=== PATIENT | male | born 1990 | race Caucasian/White ===

== ENCOUNTER 2016-10-02 23:36 | Emergency (ER) | payer OTHER ==
[~2016-10-02] VITALS: Ht 172.7 cm; Wt 76.6 kg
[2016-10-02 23:40] VITALS: TEMP 36.9; Ht 172.7 cm; Wt 76.6 kg
[2016-10-02] MEDS ORDERED: IBUPROFEN 600 MG TAB PO STA (23:51)
--- NOTE | 2016-10-02 23:58 | EMERGENCY ROOM VISIT NOTE ---
History Report prepared by Марина: Katherine Wallace Under the Supervision of: Dr. Jorge Cr D.O. First contact with patient: 23:45 Chief Complaint: KNEEPAIN Stated Complaint: SOMETHING WRONG WITH LEFT KNEE History of Present Illness The patient is a 25 year old male who presents to the Emergency Room with complaints of worsening left knee pain starting 3 days ago. The pain started at night 3 days ago after he returned home from work. He works in construction and moving furniture. He does not remember injuring his knee, twisting or turning his knee. He describes his pain as an ache. The pain worsens with movement of his knee and walking. He is unable to fully bend or extend his knee because of the pain. Today his knee began swelling, prompting him to present to the ED. Source of History: patient Onset: 3 days ago Position: knee (left) Quality: ache Timing: worsening Modifying Factors (Worsening): movement Note: Pt reports knee swelling. Review of Systems See HPI for pertinent positives & negatives. A total of 6 systems reviewed and were otherwise negative. Past Medical & Surgical Medical Problems: (1) No Known Active Medical Problems Family History No pertinent family history stated. Social History Smoking Status: Current Every Day Smoker Alcohol Use: occasionally Occupation Status: [employer] student Current/Historical Medications No Active Prescriptions or Reported Meds Allergies Coded Allergies: No Known Allergies (Unverified , 10/03/16) Physical Exam Vital Signs Date Time Temp Pulse Resp B/P Pulse Ox O2 Delivery O2 Flow Rate FiO2 10/02/16 23:40 36.9 118 18 141/81 96 Room Air Physical Exam GENERAL: Awake, alert, well-appearing, in no distress HENT: Normocephalic, atraumatic. Oropharynx unremarkable. EYES: Normal conjunctiva. Sclera non-icteric. NECK: Supple. No nuchal rigidity. FROM. No JVD. RESPIRATORY: Clear to auscultation. CARDIAC: Regular rate, normal rhythm. Extremities warm and well perfused. Pulses equal. ABDOMEN: Soft, non-distended. No tenderness to palpation. No rebound or guarding. No masses. RECTAL: Deferred. MUSCULOSKELETAL: Chest examination reveals no tenderness. The back is symmetrical on inspection without obvious abnormality. There is no CVA tenderness to palpation. No joint edema. LOWER EXTREMITIES: Calves are equal size bilaterally and non-tender. No edema. No discoloration. Patella nontender, negative for anterior drawer, some tenderness at quadriceps insertion with mild edema, but able to terminally extend, neurovascularly intact distally. NEURO: Normal sensorium. No sensory or motor deficits noted. SKIN: No rash or jaundice noted. Medical Decision & Procedures ER Provider Diagnostic Interpretation: X-ray: Per my interpretation. Knee X-ray is negative. Medications Administered Medications (Trade) Dose Ordered Sig/Jerod Route Start Time Stop Time Status Last Admin Dose Admin Ibuprofen (Motrin Tab) 600 mg NOW STAT PO 10/02/16 23:51 10/02/16 23:53 DC 10/03/16 00:28 600 MG ED Course 2347: The patient was evaluated in room B10. A complete history and physical exam was performed. 2351: Ibuprofen 600 mg PO. 0037: I reevaluated the patient. Discussed results and discharge instructions: he verbalized understanding and agreement. The patient is ready for discharge. Medical Decision Differential diagnoses include but are not limited to; strain, sprain, contusion , tendonitis. Patient resting in no distress on repeat examination. Patient's exam reveals possible quadriceps tendinitis. Patient was placed in a knee immobilizer. I discussed the workup with the patient patient's x-ray as interpreted by me was negative for fracture dislocation. Impression Primary Impression: Quadriceps tendonitis Scribe Attestation The scribe's documentation has been prepared under my direction and personally reviewed by me in its entirety. I confirm that the note above accurately reflects all work, treatment, procedures, and medical decision making performed by me. Departure Information Dispostion Home / Self-Care Prescriptions Ibuprofen (Motrin) 800 Mg Tab 800 MG PO Q8H for 5 Days, #15 TAB Prov: Jorge Cr, DO 10/03/16 Referrals No Doctor, Assigned (PCP) Patient Instructions ED Sprain Knee, My [facility]
[2016-10-03] MEDS ORDERED: IBUP-1428 PO (00:39)
[2016-10-03 00:48] VITALS: BP 152/74; PULSE 92; O2SAT 98
--- NOTE | 2016-10-03 07:17 | DIAGNOSTIC IMAGING REPORT ---
LEFT KNEE 3 VIEWS HISTORY: Left knee pain COMPARISON: Left knee 10/08/2010. FINDINGS: There is no fracture or dislocation. Soft tissues are unremarkable. No radiopaque foreign bodies. No knee effusion. Cartilage spaces are maintained for age. IMPRESSION: No fractures. Electronically signed by: Joe Flower M.D. 10/03/2016 7:15 AM Dictated Date/Time: 10/03/2016 7:14 AM
== END 2016-10-03 00:50 | disposition home or self-care (01) ==
LOC: C.EDB 23:37
DX: M77.8 Other enthesopathies, not elsewhere classified (principal); F17.200 Nicotine dependence, unspecified, uncomplicated

== ENCOUNTER 2017-07-02 02:56 | Emergency (ER) | payer SELFPAY ==
[~2017-07-02] VITALS: Ht 172.7 cm; Wt 75.0 kg
[2017-07-02 02:59] VITALS: TEMP 37.2; Ht 172.7 cm; Wt 75.0 kg
[2017-07-02] MEDS ORDERED: SODIUM CHLORIDE 0.9% 1000ML 2,000 ML IV STA (03:07)
[2017-07-02] MEDS ORDERED: ONDANSETRON INJ 2 MG/ML 2 ML VIAL IV STA (03:14)
[2017-07-02] MEDS ORDERED: MoRPHine SULFATE 4 MG/ML 1 ML CARP\\VIAL IV STA (03:14)
[2017-07-02 03:23] VITALS: O2SAT 98
[2017-07-02 03:27] LABS: BASO % 0.2 %; BASO ABS # 0.03 K/uL (0-0.2); EOS % 0.9 %; EOS ABS # 0.15 K/uL (0-0.5); HEMATOCRIT 44.9 % (42-52); HEMOGLOBIN 15.4 g/dL (14.0-18.0); IG# 0.05 K/uL (0.00-0.02); LYMPH % 19.4 %; LYMPH ABS # 3.34 K/uL (1.2-3.4); MEAN CORPUSCULAR HEMOGLOBIN 29.2 pg (25-34); MEAN CORPUSCULAR HGB CONC 34.3 g/dl (32-36); MEAN PLATELET VOLUME 10.2 fL (7.4-10.4); MONO % 7.4 %; MONO ABS # 1.27 K/uL (0.11-0.59); NEUT % 71.8 %; NEUT ABS # 12.36 K/uL (1.4-6.5); PLATELET COUNT 320 K/uL (130-400); RED CELL DISTRIBUTION WIDTH CV 12.5 % (11.5-14.5); RED CELL DISTRIBUTION WIDTH SD 38.4 fL (36.4-46.3)
[2017-07-02] MEDS ORDERED: HYDR-3419 PO (03:43)
[2017-07-02 03:53] LABS: ALBUMIN 4.2 gm/dl (3.4-5.0); ALT/SGPT 18 U/L (12-78); AST/SGOT 9 U/L (15-37); BLOOD UREA NITROGEN 18 mg/dl (7-18); CARBON DIOXIDE 25 mmol/L (21-32); CREATININE 1.11 mg/dl (0.60-1.40); GLUCOSE 117 mg/dl (70-99); POTASSIUM 3.3 mmol/L (3.5-5.1); SODIUM 138 mmol/L (136-145)
[2017-07-02] MEDS ORDERED: OPTIRAY 320 IV PRN (04:00)
[2017-07-02 04:04] LABS: ALKALINE PHOSPHATASE 117 U/L (45-117); TOTAL PROTEIN 7.9 gm/dl (6.4-8.2)
[2017-07-02] MEDS ORDERED: POTASSIUM CHLORIDE 10 MEQ TABCR PO STA (04:51)
--- NOTE | 2017-07-02 05:24 | EMERGENCY ROOM VISIT NOTE ---
History First contact with patient: 03:05 Chief Complaint: RIB PAIN Stated Complaint: HURT RIBS AND BACK UNDER SHOULDER BLADE,SOB History of Present Illness The patient is a 26 year old male who presents to the Emergency Room with complaints of left-sided chest pain with shortness of breath and racing heart. patient states for the past few days has been having increasing shortness of breath and tonight he started to have a heart rate. He describes the pain as aching, ranging in severity 7 out of 10 worse with movement and better with rest. It does not radiate. Nothing makes it better or worse. Patient denies fevers, cough, congestion, abdominal pain, leg pain or swelling, bruising, diaphoresis. No IV drug abuse. No recent travel. Patient does smoke. Review of Systems An 10 system review of systems was completed with positives and pertinent negatives listed in the HPI. Past Medical/Surgical History Medical Problems: (1) No Known Active Medical Problems Social History Smoking Status: Current Every Day Smoker Alcohol Use: occasionally Drug Use: marijuana Occupation Status: employed Current/Historical Medications Scheduled PRN Hydrocodon/Acetaminophen 5MG/300MG (Vicodin (5MG/300MG)), 2 TABS PO DIRECTED PRN for Pain Physical Exam Vital Signs Date Time Temp Pulse Resp B/P (MAP) Pulse Ox O2 Delivery O2 Flow Rate FiO2 07/02/17 04:10 110 18 163/84 100 Room Air 07/02/17 03:35 131 17 147/80 100 Room Air 07/02/17 03:23 98 Room Air 07/02/17 03:22 98 Room Air 07/02/17 03:12 143 07/02/17 02:59 37.2 147 18 149/92 100 Room Air Physical Exam VITALS: Vitals are noted on the nurse's note and reviewed by myself. Vital signs tachycardia . GENERAL: Pleasant male anxious appearing, in no acute distress, nondiaphoretic, well-developed well-nourished. SKIN: The skin was without rashes, erythema, edema, or bruising. There is no tenting of the skin. Capillary reflex less than 2 seconds. HEAD: Normocephalic atraumatic. EARS: External auditory canals clear, tympanic membranes pearly collier without erythema or effusion bilaterally. EYES: Pupils equal round and reactive to light and accommodation. Conjunctivae without injection, sclerae without icterus. Extraocular movements intact. NOSE: Patent, turbinates without inflammation or discharge. MOUTH: Mucous membranes moist. Pharynx without erythema or exudate. Uvula midline. Airway patent. Tongue does not deviate. NECK: Supple without nuchal rigidity. No lymphadenopathy. No thyromegaly. Cervical spine is nontender. No JVD. HEART: Tachycardic rate and rhythm, left-sided chest tender to palpation easily reproducing symptoms LUNGS: Clear to auscultation bilaterally without wheezes, rales or rhonchi. No dullness to percussion. No retractions or accessory muscle use. ABDOMEN: Positive bowel sounds x 4. Normal tympanic percussion. Soft, nontender, without masses or organomegaly. Cárdenas sign negative. No guarding or rebound tenderness. MUSCULOSKELETAL: No muscle atrophy, erythema, or edema noted. NEURO: Patient was alert and oriented to person place and time. Normal sensation to light and sharp touch. No focal neurological deficits. Medical Decision & Procedures Laboratory Results 07/02/17 03:18 Red Blood Count 5.28, Mean Corpuscular Volume 85.0, Mean Corpuscular Hemoglobin 29.2, Mean Corpuscular Hemoglobin Concent 34.3, Mean Platelet Volume 10.2, Neutrophils (%) (Auto) 71.8, Lymphocytes (%) (Auto) 19.4, Monocytes (%) (Auto) 7.4, Eosinophils (%) (Auto) 0.9, Basophils (%) (Auto) 0.2, Neutrophils # (Auto) 12.36, Lymphocytes # (Auto) 3.34, Monocytes # (Auto) 1.27, Eosinophils # (Auto) 0.15, Basophils # (Auto) 0.03 07/02/17 03:18 Test 07/02/17 03:18 07/02/17 03:29 White Blood Count 17.20 K/uL (4.8-10.8) Red Blood Count 5.28 M/uL (4.7-6.1) Hemoglobin 15.4 g/dL (14.0-18.0) Hematocrit 44.9 % (42-52) Mean Corpuscular Volume 85.0 fL (80-100) Mean Corpuscular Hemoglobin 29.2 pg (25-34) Mean Corpuscular Hemoglobin Concent 34.3 g/dl (32-36) Platelet Count 320 K/uL (130-400) Mean Platelet Volume 10.2 fL (7.4-10.4) Neutrophils (%) (Auto) 71.8 % Lymphocytes (%) (Auto) 19.4 % Monocytes (%) (Auto) 7.4 % Eosinophils (%) (Auto) 0.9 % Basophils (%) (Auto) 0.2 % Neutrophils # (Auto) 12.36 K/uL (1.4-6.5) Lymphocytes # (Auto) 3.34 K/uL (1.2-3.4) Monocytes # (Auto) 1.27 K/uL (0.11-0.59) Eosinophils # (Auto) 0.15 K/uL (0-0.5) Basophils # (Auto) 0.03 K/uL (0-0.2) RDW Standard Deviation 38.4 fL (36.4-46.3) RDW Coefficient of Variation 12.5 % (11.5-14.5) Immature Granulocyte % (Auto) 0.3 % Immature Granulocyte # (Auto) 0.05 K/uL (0.00-0.02) Anion Gap 11.0 mmol/L (3-11) Est Creatinine Clear Calc Drug Dose 99.3 ml/min Estimated GFR () 107.1 Estimated GFR (Non- 92.4 BUN/Creatinine Ratio 16.5 (10-20) Calcium Level 9.0 mg/dl (8.5-10.1) Magnesium Level 2.1 mg/dl (1.8-2.4) Total Bilirubin 0.2 mg/dl (0.2-1) Direct Bilirubin < 0.1 mg/dl (0-0.2) Aspartate Amino Transf (AST/SGOT) 9 U/L (15-37) Alanine Aminotransferase (ALT/SGPT) 18 U/L (12-78) Alkaline Phosphatase 117 U/L (45-117) Total Protein 7.9 gm/dl (6.4-8.2) Albumin 4.2 gm/dl (3.4-5.0) Thyroid Stimulating Hormone (TSH) 1.750 uIu/ml (0.300-4.500) Bedside Troponin I < 0.030 ng/ml (0-0.045) Medications Administered Medications (Trade) Dose Ordered Sig/Jerod Route Start Time Stop Time Status Last Admin Dose Admin Sodium Chloride 2,000 ml @ 999 mls/hr Q2H1M STAT IV 07/02/17 03:07 07/02/17 05:07 DC 07/02/17 03:29 999 MLS/HR Morphine Sulfate (MoRPHine SULFATE INJ) 4 mg NOW STAT IV 07/02/17 03:14 07/02/17 03:16 DC 07/02/17 03:29 4 MG Ondansetron HCl (Zofran Inj) 4 mg NOW STAT IV 07/02/17 03:14 07/02/17 03:16 DC 07/02/17 03:29 4 MG Potassium Chloride (Klor-Con M10) 20 meq NOW STAT PO 07/02/17 04:51 07/02/17 04:52 DC 07/02/17 05:00 20 MEQ ED Course Prior records/ancillary studies reviewed. Triage Nursing notes reviewed. Additional history obtained from friends. The patient's history was concerning for chest pain. Differential diagnosis: Etiologies such as cardiac ischemia, aortic dissection, pulmonary embolism, pneumonia, pneumothorax, musculoskeletal, infections, pericarditis, myocarditis , esophageal rupture, gastrointestinal, as well as others were entertained. Physical examination: As above. ER treatment provided: IV fluids, morphine, Zofran, incentive spirometry On reassessment the patient felt better. Diagnostic interpretation by me: The electrocardiogram was normal sinus rhythm with no acute ST-T wave changes, poor baseline, rate of 150. Impression sinus tachycardia interpreted by myself Repeat EKG shows normal sinus rhythm with no acute ST-T wave changes with rate of 92 per my interpretation. Improved from prior. The labs revealed hypokalemia this is replaced orally. Euthyroid. Negative troponin Stable H&H, leukocytosis Imaging studies: Chest x-ray with no acute consolidation, pneumothorax free of my interpretation CTA CHEST: Subtle age indeterminate deformity of the left first, second, and third anterior ribs . Remainder of visualized bony structures are unremarkable. No pneumothorax or lung contusions. No hemothorax. Normal caliber thoracic aorta with pulsation artifact. 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 No para-aortic fluid. No retrosternal hematoma or hemopericardium. Residual thymic tissue in anterior mediastinum. Radiologist: Deangelo Jeter M.D. Exam and history seem consistent with chest wall injury. No pneumothorax or pulmonary contusion. Patient's heart rate came down. He was quite anxious appearing upon initial evaluation. He came down on its own. He was advised to do incentive spirometry 10 times an hour for the next 2 weeks to take NSAIDs as needed for the pain. He was advised to follow-up family care in a day or 2 here in the ER sooner for chest pain, fevers, difficulty breathing, worsening signs or symptoms or as needed. Patient was neurovascularly and neurologically intact. He had stable vital signs. He was not hypoxic. He was not retracting.By the evaluation outlined above emergent etiologies such as cardiac ischemia, aortic dissection, pulmonary embolism, pneumonia, pneumothorax, infections, pericarditis, myocarditis, gastrointestinal, as well as others were deemed relatively unlikely. Patient states he is very anxious in the healthcare setting. This happened to him twice before. Patient's heart rate came down on its own. The pt informed about the findings as listed above. All questions were answered and pleased with the treatment. Return instructions were outlined and the patient was discharged in stable condition. Referral: The patient was referred back to primary care physician for follow-up in 2 to 3 days for a recheck of the current condition. Case reviewed with my attending The chart was completed utilizing [employer] Speech voice recognition software. Grammatical errors, random word insertions, pronoun errors, and incomplete sentences are an occassional consequence of this system due to software limitations, ambient noise, and hardware issues. Any formal questions or concerns about the content, text, or information contained within the body of this dictation should be directly addressed to the physician assistant center director for clarification. Medical Decision As above Medication Reconcilliation Current Medication List: was personally reviewed by me Blood Pressure Screening Patient's blood pressure: Elevated blood pressure Blood pressure disposition: Elevated BP felt to be situational Impression Primary Impression: Chest wall injury Additional Impression: Hypokalemia Departure Information Dispostion Home / Self-Care Condition GOOD Referrals No Doctor, Assigned (PCP) Patient Instructions My [facility] Additional Instructions Incentive spirometry 10 times an hour while you are awake for the next 2 weeks. Ibuprofen(Motrin, Advil) may be used for fever or pain. Use 600mg every six hours as needed. Take with food. Avoid using more than 2400mg in a 24 hour period. Do not use 2400mg per day for more than three consecutive days without physician direction. Prolonged inappropriate use can lead to stomach upset or ulcers. (AND/OR) Acetaminophen(Tylenol) may be used for fever or pain. Use 1000mg every six hours as needed. Avoid using more than 3000mg in a 24 hour period. Rest and drink plenty of fluids as tolerated. Continue current medications. Recommend that you stop smoking. Avoid strenuous activities and anything that worsens your pain. Resume normal activities once your symptoms resolve. Return to the ER immediately for worsening or persistent chest pain, abdominal pain, vomiting, fevers, difficulty breathing, worsening of your condition, or as needed. Follow up with your primary physician in 2-3 days for a recheck of your current condition. Problem Qualifiers Primary Impression: Chest wall injury Encounter type: initial encounter Qualified Codes: S29.9XXA - Unspecified injury of thorax, initial encounter
[2017-07-02 05:59] VITALS: BP 157/80; PULSE 97; O2SAT 100
--- NOTE | 2017-07-02 07:15 | DIAGNOSTIC IMAGING REPORT ---
CHEST ONE VIEW PORTABLE CLINICAL HISTORY: 26 years-old Male presenting with CHEST PAIN. TECHNIQUE: Portable upright AP view of the chest was obtained. COMPARISON: Correlation made to CTA of the chest performed subsequently the same day. FINDINGS: Cardiomediastinal silhouette normal. Lungs and pleural spaces clear. Osseous structures normal. Upper abdomen normal. IMPRESSION: 1. No acute cardiopulmonary disease. Electronically signed by: Germna Oshea M.D. 07/02/2017 7:13 AM Dictated Date/Time: 07/02/2017 7:12 AM
--- NOTE | 2017-07-02 07:31 | DIAGNOSTIC IMAGING REPORT ---
(CHEST FOR PE) ANGIO WITH CT DOSE: 344.72 mGy.cm HISTORY: 26 years-old Male presents with acute atypical chest pain with recent fall TECHNIQUE: Multiple CTA images of the chest were obtained after the intravenous administration of 107 ml Optiray 320. Coronal and sagittal MIPS were obtained from the axial data set and were submitted for review. A dose lowering technique was utilized adhering to the principles of ALARA. COMPARISON: Chest radiograph 07/02/2017. FINDINGS: CTA: Heart is normal in size without pericardial effusion. Aberrant right subclavian artery. Imaged great vessels are widely patent. No aortic aneurysm or dissection. The pulmonary arterial free is opacified to level of the subsegmental branches and demonstrates no focal filling defects to suggest biliary thromboembolic disease. CT CHEST: Mild residual thymic tissue of the anterior mediastinum. Thyroid is homogeneous. No pathologic adenopathy. No pneumothorax, pleural effusion, focal airspace consolidation or overt pulmonary edema. Central airways are patent. Upper abdominal structures are within normal limits. Mild bilateral gynecomastia. There is mild cortical angulation involving the anterior portion of the left third rib, image 201 series 4 with mild cortical angulation also noted involving the anterior portions of the left first and second ribs. No acute displaced fractures identified. Spine appears intact. IMPRESSION: 1. No acute aortic pathology or evidence of pulmonary thromboembolic disease. 2. Aberrant origin of the right subclavian artery. 3. Minimal cortical angulation involving the anterior portions of the left first, second and third ribs may reflect age indeterminate injury. No acute displaced rib fracture or pneumothorax identified. The above report was generated using voice recognition software. It may contain grammatical, syntax or spelling errors. Electronically signed by: Shawn Milian M.D. 07/02/2017 7:29 AM Dictated Date/Time: 07/02/2017 7:21 AM
== END 2017-07-02 05:59 | disposition home or self-care (01) ==
LOC: C.EDB 02:57
DX: S29.9XXA Unspecified injury of thorax, initial encounter (principal); X58.XXXA Exposure to other specified factors, initial encounter; Y92.9 Unspecified place or not applicable; E87.6 Hypokalemia; F17.210 Nicotine dependence, cigarettes, uncomplicated